=== PATIENT | male | born 1940 | race Caucasian/White ===

== ENCOUNTER 2022-06-10 07:54 | Inpatient (IN) ==
[2022-06-10] MEDS ORDERED: SODIUM CHLORIDE 0.9% 1000ML 1,000 ML IV SCH (08:45)
[2022-06-10 08:49] LABS: Basophils # (auto) 0.06 K/uL (0-0.2); Basophils % (auto) 0.9 %; Eosinophils # (auto) 0.23 K/uL (0-0.50); Eosinophils % (auto) 3.3 %; Hematocrit (blood only) 43.1 % (40.1-51.0); Hemoglobin 15.2 g/dl (14.0-18.0); Immature Granulocytes # (auto) 0.03 K/uL (0.00-0.02); Immature Granulocytes % (auto) 0.4 %; Lymphocytes # (auto) 1.54 K/uL (1.2-3.4); Lymphocytes % (auto) 22.3 %; Mean Corpuscular Hemoglobin 29.2 pg (25.0-34.0); Mean Corpuscular Hgb Conc 35.3 g/dL (32.0-36.0); Mean Corpuscular Volume 82.9 fL (80.0-100.0); Mean Platelet Volume 10.5 fL (9.4-12.4); Neutrophils # (auto) 4.15 K/uL (1.4-6.5); Neutrophils % (auto) 60.1 %; Platelet Count 186 K/uL (130-400); RDW Standard Deviation 41.6 fL (36.4-46.3); White Blood Count 6.91 K/ul (4.8-10.8)
[2022-06-10 09:06] LABS: BUN Creatinine Ratio 19.8 (10-20); Calcium 10.6 mg/dl (8.5-10.1); Creatinine Clr Calc Pharmacy 59.6 ml/min; Est GFR (African American) 84.4 ml/min; Est GFR (Non-African American) 72.8 ml/min; Potassium 4.2 mmol/L (3.5-5.1)
[2022-06-10 09:20] LABS: Albumin Globulin Ratio 1.2 (0.9-2); Albumin Level 3.8 gm/dl (3.4-5.0); Globulin 3.3 gm/dl (2.5-4.0); Total Protein 7.1 gm/dl (6.0-8.3)
[2022-06-10 09:27] LABS: Appearance Urine Clear (Clear); Bacteria Urine Automated 4+ (Negative); Bilirubin Urine Negative (Negative); Blood Urine Negative (Negative); Color Urine Yellow; Epithelial Cell Urine Auto 0-5 /lpf (0-5); Glucose Urine UA Negative (Negative); Ketones Urine Negative (Negative); Leukocyte Esterase Urine 3+ (Negative); Nitrite Urine Positive (Negative); Protein Urine Trace (Negative); RBC Urine Automated 0-4 /hpf (0-4); Specific Gravity Urine 1.019 (1.000-1.030); Urobilinogen Urine Negative (Negative); WBC Urine Automated >30 /hpf (0-5)
[2022-06-10 09:38] LABS: Troponin I High Sensitivity 4.9 pg/ml (0-20)
--- NOTE | 2022-06-10 09:41 | XRay Report ---
XR chest 1V portable HISTORY: weakness COMPARISON: Chest 04/21/2022. FINDINGS: No pneumothorax. No pleural effusions. The cardiac silhouette remains top normal in size. T here is mild diffuse interstitial thickening and a few bibasilar linear densities consistent with sub segmental atelectasis. This is similar to the prior study. There are healing/healed left lower rib fr actures. No new focal lung consolidations to suggest pneumonia. No evidence for pulmonary edema. IMPRESSION: 1. No change in the mild interstitial thickening which is likely chronic. 2. Healing/healed left lower rib fractures. No pneumothorax. ACT 112: Negative or not required by law. Electronically signed by: Prince Amaro M.D. 06/10/2022 9:40 AM
--- NOTE | 2022-06-10 09:58 | Emergency Department Note ---
Impression & Plan Urinary tract infection, Weakness - Urinalysis w/ culture UTI on urinalysis, started Rocephin - CXR - no acute processes - Troponin - negative - EKG - normal - CBC - unremarkable - CMP - unremarkable - COVID - negative ED Provider Note CHIEF COMPLAINT: Weakness/Instability HISTORY OF PRESENT ILLNESS: Camilo is an 81 year old male with hx of irregular heartbeats (on Metoprolol s/p placement of permanent monitor), dementia, arthritis, and recurrent UTIs who presents for evaluation of weakness/instability that has been progressing over the last month. History as per son, Sawyer. Notes increased instability and difficulty with stairs over the last month. Presented today as patient could not sit or stand independently at home. Son notes a pattern of UTIS that present with weakness, instability, and falls (most recent April) Worsening shortness of breath w/ exertion over last month no pleuritic pain, chest pain, or LE edema. Son notes visibly labored open-mouth breathing CXR performed in late April when sx started was negative (unknown if prior Echo, prior EKG wnl) Notes that RLE tends to get stick and catch when he is walking which causes instability. No dietary or medication changes over last two months. No smoking or alcohol use history. 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 Currently eats a broad balanced diet. Low on fluid intake. Associated: No fevers. No nausea or vomiting + Diarrhea started a few days ago. No blood or change in color of stool. No complaints of burning with urination, + significant amounts of urine, no suprapubic pain. No blood or change in urine color. Son notes dark urine. + Chronic intention tremor of R hand No complaints of lightheadedness or dizziness. + Orthostatic changes (instability upon transition from seated to standing) Son requesting emergency placement. Patient and have dementia. Son is POA. REVIEW OF SYSTEMS: A review of systems was performed with positives and pertinent negatives listed in the history of present illness. 10 systems were reviewed and are otherwise negative. ALLERGIES: see below MEDICATIONS: see below PMH: see below SOCIAL HISTORY: see below DDx: Urinary Tract Infection R/o pneumonia, R/o ACS Physical deconditioning, Orthostatic changes PHYSICAL EXAM: Vital signs reviewed. General: Generally well-appearing, in no acute distress, confused. HEENT: No scleral icterus, PERRLA, neck supple. Atraumatic. Cardiovascular: Regular rate and rhythm, no extra sounds. Pulmonary: Clear to auscultation bilaterally, normal work of breathing. Abdomen: Soft, nontender, nondistended, positive bowel sounds. Ismael negative. No suprapubic pain. Musculoskeletal: Atraumatic, no peripheral edema. 4/5 strength symmetric in upper and lower extremities. Sensation intact. 2+ distal pulses. Neurologic: Patient awake alert and oriented x 1, speech is clear Skin: Warm, dry, no rash EMERGENCY DEPARTMENT COURSE/MDM: Patient presented to ER for weakness. Discussed with patient's son Sawyer. Was evaluated at bedside. Ordered urinalysis, CXR, Troponin, EKG< CBC, CMP, and COVID. Patient was found to have UTI and was started on IV Rocephin. Recommending that patient be admitted for management of his UTI and weakness. Will require half-way placement per son. I did explain the findings and plan to the patient and family at the bedside. They expressed an understanding and agreed. Hospitalist was consulted for admission and further management. MONITORING: An order for cardiac monitoring was placed. RADIOLOGY: Chest XR IMPRESSION: 1. No change in the mild interstitial thickening which is likely chronic. 2. Healing/healed left lower rib fractures. No pneumothorax. EKG: Ordered DISPOSITION: Admission Past Med/Surg History Medical History BPH (benign prostatic hyperplasia) Dementia Glaucoma Family History Mother Father Social History Smoking Status: Never smoker Hx Alcohol Use: No Hx Substance Use: No Preferred Language: Vietnamese Communication Ability: Effective Junior Programmer Analyst Required: No Beliefs That Will Affect Care: None Current Living Situation: Family Current Living Situation Comment: pt and his live with their son Feels Safe at Home: Yes Assistive Devices: Walker Allergies Allergies Allergy/AdvReac Type Severity Reaction Status Date / Time No Known Allergies Allergy Unverified 06/10/22 18:50 None Home Meds Home Medications Medication Instructions Recorded Confirmed donepezil 10 mg tablet 10 mg PO DAILY 06/10/22 06/10/22 latanoprost 0.005 % eye drops 1 drp OPB QA 06/10/22 06/10/22 meloxicam 15 mg tablet 15 mg PO DAILY 06/10/22 06/10/22 rivastigmine 9.5 mg/24 hour 1 patch transdermal [facility] 06/10/22 06/10/22 transdermal patch terazosin 1 mg capsule 1 mg PO 06/10/22 06/10/22 timolol maleate 0.5 % eye drops 1 drp OPB 06/10/22 06/10/22 Results & Data (ED) Vital Signs Vital Signs - 24 hr 06/10/22 08:05 06/10/22 08:29 06/10/22 08:43 Temperature 36.9 C Temperature Source Oral Pulse Rate 70 Pulse Rate [Right Finger] Pulse Rhythm [Right Finger] Pulse Strength [Right Finger] Respiratory Rate 16 Respiratory Effort / Characteristics Respiratory Depth Respiratory Pattern Blood Pressure 150/86 H Blood Pressure [Right Arm] Blood Pressure Mean 107 Blood Pressure Mean [Right Arm] Blood Pressure Position [Right Arm] Pulse Oximetry 90 89 L Oxygen Delivery Method Room Air Nasal Cannula Room Air Oxygen Flow Rate 0 Sepsis Recent Fever Within 48 Hours No Sepsis New/Unexplained Change in Mental Status No Sepsis Action Taken by Nursing No Action Required Oxygen Flow Rate - Titration 1 Pulse Oximetry Post Tiitration 96 06/10/22 10:00 Temperature Temperature Source Pulse Rate Pulse Rate [Right Finger] 61 Pulse Rhythm [Right Finger] Regular Pulse Strength [Right Finger] Normal Respiratory Rate 18 Respiratory Effort / Characteristics Non-Labored Respiratory Depth Normal Respiratory Pattern Regular Blood Pressure Blood Pressure [Right Arm] 151/89 H Blood Pressure Mean Blood Pressure Mean [Right Arm] 109 Blood Pressure Position [Right Arm] Lying Pulse Oximetry 96 Oxygen Delivery Method Nasal Cannula Oxygen Flow Rate 1 Sepsis Recent Fever Within 48 Hours Sepsis New/Unexplained Change in Mental Status Sepsis Action Taken by Nursing Oxygen Flow Rate - Titration Pulse Oximetry Post Tiitration Home Medications Current Medication List: was personally reviewed by me Laboratory Data Attestation: I reviewed the patient's lab results. Result diagrams: 06/11/22 06:44 06/11/22 06:44 Lab Results 06/10/22 06/10/22 06/10/22 Range/Units 08:01 08:01 09:05 WBC 6.91 (4.8-10.8) K/ul RBC 5.20 (4.63-6.08) M/uL Hgb 15.2 (14.0-18.0) g/dl Hct 43.1 (40.1-51.0) % MCV 82.9 (80.0-100.0) fL MCH 29.2 (25.0-34.0) pg MCHC 35.3 (32.0-36.0) g/dL RDW Std Deviation 41.6 (36.4-46.3) fL RDW Coeff of Kin 14.0 (11.5-14.5) % Plt Count 186 (130-400) K/uL MPV 10.5 (9.4-12.4) fL Immature Gran % (Auto) 0.4 % Neut % (Auto) 60.1 % Lymph % (Auto) 22.3 % Pinal % (Auto) 13.0 % Eos % (Auto) 3.3 % Baso % (Auto) 0.9 % Neut # (Auto) 4.15 (1.4-6.5) K/uL Lymph # (Auto) 1.54 (1.2-3.4) K/uL Pinal # (Auto) 0.90 H (0.24-0.82) K/uL Eos # (Auto) 0.23 (0-0.50) K/uL Baso # (Auto) 0.06 (0-0.2) K/uL Immature Gran # (Auto) 0.03 H (0.00-0.02) K/uL Sodium 139 (136-145) mmol/L Potassium 4.2 (3.5-5.1) mmol/L Chloride 105 (98-107) mmol/L Carbon Dioxide 29 (21-32) mmol/L Anion Gap 5 (3-11) BUN 19 (6-23) mg/dl Creatinine 0.96 (0.6-1.4) mg/dl Est Cr Clr Drug Dosing 59.6 ml/min Est GFR ( Amer) 84.4 ml/min Est GFR (Non-Af Amer) 72.8 ml/min BUN/Creatinine Ratio 19.8 (10-20) Glucose 108 H (70-99(Fasting)) mg/dl Lactate 0.8 (0.4-2.0) mmol/L Calcium 10.6 H (8.5-10.1) mg/dl Magnesium 2.0 (1.7-2.4) mg/dl Total Bilirubin 1.0 (0.2-1.0) mg/dl AST 12 L (13-39) U/L ALT 11 (7-52) U/L Alkaline Phosphatase 69 (34-104) U/L Troponin I High Sens 4.9 (0-20) pg/ml Total Protein 7.1 (6.0-8.3) gm/dl Albumin 3.8 (3.4-5.0) gm/dl Globulin 3.3 (2.5-4.0) gm/dl Albumin/Globulin Ratio 1.2 (0.9-2) Urine Color Urine Appearance (Clear) Urine pH (4.5-7.5) Ur Specific [place] (1.000-1.030) Urine Protein (Negative) Urine Glucose (UA) (Negative) Urine Ketones (Negative) Urine Blood (Negative) Urine Nitrite (Negative) Urine Bilirubin (Negative) Urine Urobilinogen (Negative) Ur Leukocyte Esterase (Negative) Urine WBC (Auto) (0-5) /hpf Urine RBC (Auto) (0-4) /hpf U Hyaline Cast (Auto) (0-5) /lpf U Epithel Cells (Auto) (0-5) /lpf Urine Bacteria (Auto) (Negative) SARS-CoV-2, RNA, NAAT (NEGATIVE) 06/10/22 06/10/22 Range/Units 09:10 09:10 WBC (4.8-10.8) K/ul RBC (4.63-6.08) M/uL Hgb (14.0-18.0) g/dl Hct (40.1-51.0) % MCV (80.0-100.0) fL MCH (25.0-34.0) pg MCHC (32.0-36.0) g/dL RDW Std Deviation (36.4-46.3) fL RDW Coeff of Kin (11.5-14.5) % Plt Count (130-400) K/uL MPV (9.4-12.4) fL Immature Gran % (Auto) % Neut % (Auto) % Lymph % (Auto) % Pinal % (Auto) % Eos % (Auto) % Baso % (Auto) % Neut # (Auto) (1.4-6.5) K/uL Lymph # (Auto) (1.2-3.4) K/uL Pinal # (Auto) (0.24-0.82) K/uL Eos # (Auto) (0-0.50) K/uL Baso # (Auto) (0-0.2) K/uL Immature Gran # (Auto) (0.00-0.02) K/uL Sodium (136-145) mmol/L Potassium (3.5-5.1) mmol/L Chloride (98-107) mmol/L Carbon Dioxide (21-32) mmol/L Anion Gap (3-11) BUN (6-23) mg/dl Creatinine (0.6-1.4) mg/dl Est Cr Clr Drug Dosing ml/min Est GFR ( Amer) ml/min Est GFR (Non-Af Amer) ml/min BUN/Creatinine Ratio (10-20) Glucose (70-99(Fasting)) mg/dl Lactate (0.4-2.0) mmol/L Calcium (8.5-10.1) mg/dl Magnesium (1.7-2.4) mg/dl Total Bilirubin (0.2-1.0) mg/dl AST (13-39) U/L ALT (7-52) U/L Alkaline Phosphatase (34-104) U/L Troponin I High Sens (0-20) pg/ml Total Protein (6.0-8.3) gm/dl Albumin (3.4-5.0) gm/dl Globulin (2.5-4.0) gm/dl Albumin/Globulin Ratio (0.9-2) Urine Color Yellow Urine Appearance Clear (Clear) Urine pH 5.0 (4.5-7.5) Ur Specific [place] 1.019 (1.000-1.030) Urine Protein Trace H (Negative) Urine Glucose (UA) Negative (Negative) Urine Ketones Negative (Negative) Urine Blood Negative (Negative) Urine Nitrite Positive A (Negative) Urine Bilirubin Negative (Negative) Urine Urobilinogen Negative (Negative) Ur Leukocyte Esterase 3+ H (Negative) Urine WBC (Auto) >30 H (0-5) /hpf Urine RBC (Auto) 0-4 (0-4) /hpf U Hyaline Cast (Auto) 10-30 H (0-5) /lpf U Epithel Cells (Auto) 0-5 (0-5) /lpf Urine Bacteria (Auto) 4+ H (Negative) SARS-CoV-2, RNA, NAAT NEGATIVE (NEGATIVE) Administered Medications Donepezil HCl (Donepezil Hcl 10 Mg Tab) 10 mg PO HS JOHN Stop: 07/11/22 20:59 Last Admin: 06/11/22 20:06 Dose: 10 mg Documented By: YESENIA Ceftriaxone Sodium 1,000 mg/ (Dextrose) 60 mls @ 100 mls/hr IV Q24H JOHN; Protocol Stop: 06/21/22 10:29 Last Infusion: 06/11/22 12:51 Dose: 0 mls/hr Documented By: Admin: 06/11/22 12:05 Dose: 100 mls/hr Documented By: ELENITA Latanoprost (Latanoprost 0.005% Op Soln 2.5 Ml Btl) 1 drops OPR DAILY JOHN Stop: 07/11/22 08:59 Last Admin: 06/12/22 07:36 Dose: 1 drops Documented By: Admin: 06/11/22 07:52 Dose: 1 drops Documented By: ELENITA Terazosin HCl (Terazosin Hcl 1 Mg Cap) 1 mg PO [facility] Stop: 07/10/22 20:59 Last Admin: 06/11/22 20:06 Dose: 1 mg Documented By: Admin: 06/10/22 21:22 Dose: 1 mg Documented By: LINDA Thiamine HCl (Thiamine Hcl 100 Mg Tab) 100 mg PO QAM [facility] Stop: 07/11/22 16:14 Last Admin: 06/12/22 07:35 Dose: 100 mg Documented By: Admin: 06/11/22 17:56 Dose: 100 mg Documented By: ELENITA Timolol Maleate (Timolol Maleate 0.5% Op Soln 5 Ml Btl) 1 drops OPR DAILY JOHN Stop: 07/11/22 08:59 Last Admin: 06/12/22 07:35 Dose: 1 drops Documented By: Admin: 06/11/22 07:54 Dose: 1 drops Documented By: ELENITA Discontinued Medications Gadobutrol (Gadobutrol 65ml Vial) 7 ml IV ONCE ONE Stop: 06/11/22 19:51 Last Admin: 06/11/22 19:50 Dose: 7 ml Documented By: ISRAEL Sodium Chloride (Nss 1000ml) 1,000 mls @ 125 mls/hr IV .Q8H JOHN Stop: 06/10/22 16:44 Last Infusion: 06/10/22 18:56 Dose: 125 mls/hr Documented By: Admin: 06/10/22 09:10 Dose: 125 mls/hr Documented By: AP Ceftriaxone Sodium (Rocephin) 1,000 mg in 50 mls @ 100 mls/hr IV NOW STA Stop: 06/10/22 10:32 Last Infusion: 06/10/22 11:01 Dose: 0 mls/hr Documented By: Admin: 06/10/22 10:27 Dose: 100 mls/hr Documented By: AP Imaging Data Radiologist's Impression: Chest X-Ray 06/10/22 08:43 XR chest 1V portable HISTORY: weakness COMPARISON: Chest 04/21/2022. FINDINGS: No pneumothorax. No pleural effusions. The cardiac silhouette remains top normal in size. There is mild diffuse interstitial thickening and a few bibasilar linear densities consistent with subsegmental atelectasis. This is similar to the prior study. There are healing/healed left lower rib fractures. No new focal lung consolidations to suggest pneumonia. No evidence for pulmonary edema. IMPRESSION: 1. No change in the mild interstitial thickening which is likely chronic. 2. Healing/healed left lower rib fractures. No pneumothorax. ACT 112: Negative or not required by law. Electronically signed by: Prince Amaro M.D. 06/10/2022 9:40 AM Blood Pressure Blood Pressure Findings: Elevated blood pressure Blood Pressure Disposition: further management by hospitalist Discharge Plan Visit Data Chief Complaint: Weakness Stated Complaint: WEAKNESS ED Provider: Nirali Figueroa Discharge Problem: Urinary tract infection, Weakness Patient Disposition: Admitted As Inpatient Discharge Instructions Interventions: ED Discharge Assessment Last Done: 06/10/22 23:12
[2022-06-10] MEDS ORDERED: cefTRIAXone SODIUM 1,000 MG/50 ML BAG IV STA (10:03)
--- NOTE | 2022-06-10 11:48 | History & Physical Report ---
Date of Service June 10, 2022 Assessment & Plan (1) Weakness: Plan: General weakness without any recent acute drop-off; has just been slowly getting weaker. Last fall was ~5 months ago. Some thought that bradycardia was causing his weakness, but son reports his implantable loop recorder has not had any alerts yet. - If any concerns of bradycardia, can interrogate device; do not see need for telemetry at this time. - PT/OT - Placement (2) Hypoxemia: Plan: Has been feeling short of breath with exertion for weeks (likely months per son). 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 CXR on admission showed chronic mild interstitial thickening which may reflect that. No acute process in CXR. No home O2. - Supplemental O2 as needed; presently only requiring 1 L. (3) Asymptomatic bacteriuria: Plan: UA shows nitrates, leuk esterase, WBCs, bacteria; however, patient denies dysuria, polyuria, pelvic pain, fevers, chills, nausea, or any other symptom that I think would be related to a UTI. Asymptomatic bacteruria prevalence is 6- 15%. (PMID: [id number]). No not think his generalized weakness is a symptom of UTI given his gradual decline over months. - No treatment (4) Glaucoma: Plan: - Continue home drops (5) Dementia: Plan: Son reports diagnosis of dementia. Patient is AAOx3 for me (self, hospital ([facility]), year/month/day/date). Knows he is here for weakness. Some vagueness on time frame of events. Appears to be at baseline. - Continue home donepezil - Hold home rivastigmine as its side effects include weight loss (1-25%), abnormal gait (4%), weakness (2-6%). (6) BPH (benign prostatic hyperplasia): Plan: Reports no LUTS at present. - Continue home terazosin - Monitor for symptoms (7) DVT prophylaxis: Plan: SCDs - Low DVT risk per admission calculator DNR/DNI - Per patient with and son present and in agreement. History of Present Illness Primary Care Provider: Uday Turk, DO 81yo M w/ hx of glaucoma, some memory issues who presents with weakness. He is a fairly vague historian and does not give any time frames for anything, but says that he has been feeling weak for "awhile" which son points to at least several months. He was hospitalized at [facility] about a month ago, and he has been living with his son since then. The son reports that he is generally weak with right leg worse than left (though no recent change). He has not fallen, but he son reports that someone in the family has to help him everywhere he walks to prevent him from falling. The son reports that his metoprolol was recently stopped, and he actually had an implantable loop recorder inserted to see if he is becoming bradycardic as a cause of his weakness. Home Medications Medication Instructions Recorded Confirmed Type donepezil 10 mg tablet 10 mg PO DAILY 06/10/22 06/10/22 History latanoprost 0.005 % eye drops 1 drp OPB QA 06/10/22 06/10/22 History meloxicam 15 mg tablet 15 mg PO DAILY 06/10/22 06/10/22 History rivastigmine 9.5 mg/24 hour 1 patch transdermal QA 06/10/22 06/10/22 History transdermal patch terazosin 1 mg capsule 1 mg PO 06/10/22 06/10/22 History timolol maleate 0.5 % eye drops 1 drp OPB 06/10/22 06/10/22 History Past Med/Surg History Medical History BPH (benign prostatic hyperplasia) Dementia Glaucoma Family History Mother Father Social History Smoking Status: Never smoker Preferred Language: Persian Feels Safe at Home: Yes Review of Systems Review of Systems: All systems reviewed & are unremarkable except as noted in HPI & below Physical Exam Constitutional: WD/WN, vitals as above Eyes: EOM intact bilaterally; no conjunctival abnormality ENMT: external ear and nose normal, oropharynx normal Neck: trachea midline, no thyromegaly normal visual inspection Respiratory: normal respiratory effort, lungs clear to auscultation no respiratory distress Cardiovascular: RRR, no murmur, no edema Gastrointestinal (Abdomen): Inspection/Auscultation: abdomen normal to inspection; abdomen not distended Musculoskeletal: no cyanosis or clubbing, extremities motor strength 5/5 Skin: no rashes, warm and dry Neurologic: moves all extremities and awake Motor/Sensory: no sensory deficit Psychiatric: Orientation: alert, oriented to person and cooperative Results & Data Results & Data ([facility]) Vital Signs (Past 12 Hours) Vital Signs Temp Pulse Pulse Resp BP BP Pulse Ox 06/10/22 10:00 61 18 151/89 H 96 06/10/22 08:43 06/10/22 08:29 89 L 06/10/22 08:05 36.9 C 70 16 150/86 H 90 O2 Del Method O2 Flow Rate 06/10/22 10:00 Nasal Cannula 1 06/10/22 08:43 Room Air 06/10/22 08:29 Nasal Cannula 0 06/10/22 08:05 Room Air Code Status & VTE Plan VTE Prophylaxis Plan VTE Prophylaxis will be ordered: Yes PG Care Time/CCT Total # of Minutes Spent Total Time Spent with Patient: Total time spent is greater than 50% in coordination of care (as documented) at patient's floor/unit and/or counseling patient: Coding Level of Care Code 60377 Initial Inpt Care Lvl 3 Diagnoses Weakness R53.1 Hypoxemia R09.02 Asymptomatic bacteriuria R82.71 Glaucoma H40.9 Dementia F03.90 BPH (benign prostatic hyperplasia) N40.0 DVT prophylaxis Z29.9
[2022-06-10] MEDS ORDERED: ONDANSETRON INJ 2 MG/ML 2 ML VIAL IV PRN (14:47)
[2022-06-10] MEDS ORDERED: ACETAMINOPHEN 325 MG TAB PO PRN (14:47)
[2022-06-10] MEDS: TERAZOSIN HCL 1 MG CAP PO SCH (21:22)
[2022-06-11 07:07] LABS: Hematocrit (blood only) 40.6 % (40.1-51.0); Hemoglobin 14.5 g/dl (14.0-18.0); Mean Corpuscular Hemoglobin 29.1 pg (25.0-34.0); Mean Corpuscular Hgb Conc 35.7 g/dL (32.0-36.0); Mean Corpuscular Volume 81.4 fL (80.0-100.0); Platelet Count 175 K/uL (130-400); RDW Coefficient of Variation 13.9 % (11.5-14.5); RDW Standard Deviation 40.5 fL (36.4-46.3); Red Blood Count 4.99 M/uL (4.63-6.08); White Blood Count 6.23 K/ul (4.8-10.8)
[2022-06-11] MEDS: LATANOPROST 0.005% OP SOLN 2.5 ML BTL OPR SCH (07:52)
[2022-06-11] MEDS: TIMOLOL MALEATE 0.5% OP SOLN 5 ML BTL OPR SCH (07:54)
[2022-06-11 07:57] LABS: BUN Creatinine Ratio 16.9 (10-20); Est GFR (African American) 94.3 ml/min; Est GFR (Non-African American) 81.4 ml/min; Magnesium 1.9 mg/dl (1.7-2.4); Phosphorus 2.7 mg/dl (2.5-4.9); Potassium 3.7 mmol/L (3.5-5.1)
[2022-06-11] MEDS ORDERED: METOPROLOL SUCC 25MG EXT REL TAB PO SCH (09:00)
[2022-06-11] MEDS ORDERED: RIVASTIGMINE TD SCH (09:00)
--- NOTE | 2022-06-11 09:57 | Electrocardiogram Report ---
Test Reason : Blood Pressure : / mmHG Vent. Rate : 062 BPM Atrial Rate : 062 BPM P-R Int : 156 ms QRS Dur : 096 ms QT Int : 384 ms P-R-T Axes : 076 -16 033 degrees QTc Int : 389 ms Poor data quality, interpretation may be adversely affected Normal sinus rhythm Normal ECG When compared with ECG of 21-APR-2022 17:20, No significant change was found Confirmed by Tani Vallejo ([id number]) on 06/11/2022 9:57:20 AM Referred By: REFERRED SELF Confirmed By:Tani Vallejo
[2022-06-11] MEDS ORDERED: cefTRIAXone SODIUM 1,000 MG in DEXTROSE 5% 50 ML IV SCH (10:30)
[2022-06-11 12:00] LABS: Ferritin 104.2 ng/ml (8-388)
[2022-06-11 12:10] LABS: Vitamin D, 25 Hydrox 61.5 ng/ml (30-100)
--- NOTE | 2022-06-11 16:01 | Hospitalist Progress Note ---
Date of Service June 11, 2022 Assessment & Plan (1) Weakness: Plan: General weakness without any recent acute drop-off; has just been slowly getting weaker, possibly RLE> LLE. Last fall was ~5 months ago. Some thought that bradycardia was causing his weakness, but son reports his implantable loop recorder has not had any alerts yet. Could be due to neuropathy perhaps? Checked B12 and normal With mildly elevated calcium on admission but normalized with IVFs--> checked iPTH and Vit D levels-both normal although Vit D 60 which is higher than necessary-need to find out if taking vit D supplements Vitals are normal but will check orthostatics CT head negative when seen in our ER in 04/2022 for weakness. If any concerns of bradycardia, can interrogate device; do not see need for telemetry at this time. 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 Difficult to assess due to patient's MCI, but the majority of the time, men do not have asymptomatic bacteriuria and this apparently is how he has presented in the past and then improved with anx therapy Finally, could be medication side effect? He has been on Rivastigmine patch and donepezil for at least a year but holding rivastigmine for now -check brain MRI with contrast - PT/OT evals pending -checked B1 level-pending. Will add on po thiamine -check orthostatics -consider Neuro consult or outpt EMG/NCS if MRI brain neg -treating UTI (2) Urinary tract infection: Plan: as above UA abnormal Ur cx with GNR restart ceftriaxone 1000mg IV daily follow Ur cx (3) Hypoxemia: Plan: Has been feeling short of breath with exertion for weeks (likely months per son). 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 CXR on admission showed chronic mild interstitial thickening which may reflect that. No acute process in CXR. No home O2. - Supplemental O2 as needed; requiring 1 LNC in ER, now on room air monitor (4) Glaucoma: Plan: - Continue home drops (5) Dementia: Plan: Son reports diagnosis of dementia. Patient is AAOx3 for me (self, hospital ([facility]), year/month/day/date). Knows he is here for weakness. Some vagueness on time frame of events. Appears to be at baseline. - Continue home donepezil - Hold home rivastigmine as its side effects include weight loss (1-25%), abnormal gait (4%), weakness (2-6%). (6) BPH (benign prostatic hyperplasia): Plan: Reports no LUTS at present. - Continue home terazosin - Monitor for symptoms (7) DVT prophylaxis: Plan: SCDs Dispo-continued stay, awaiting PT/OT evals Will call son with update DNR/DNI - Per patient with and son present and in agreement. Admission and Anticipated Discharge Date Admission Date: June 10, 2022 Subjective Pt has no complaints. Denies headache, lightheadedness, CP, SOB, nausea, abd pain. Is making urine. Is eating. Is anxious to return home. He is not eager at the prospect of going to rehab. Review of Systems Review of Systems: All systems reviewed & are unremarkable except as noted in HPI & below Physical Exam Constitutional: WD/WN, vitals as above Eyes: + anicteric sclerae Neck: trachea midline, no thyromegaly Respiratory: normal respiratory effort, lungs clear to auscultation Cardiovascular: RRR, no murmur, no edema Chest (Breasts): Chest: normal inspection of chest Gastrointestinal (Abdomen): normal bowel sounds, soft, nontender, no hepatosplenomegaly Musculoskeletal: Extremities: extremities normal to inspection; no cyanosis and no clubbing Skin: + subcutaneous nodules (innumerable on torso,extremities,flesh colored) Neurologic: moves all extremities and awake; no focal motor deficits Psychiatric: Orientation: alert, oriented x 3 and cooperative Lymphatic: no lymphedema Results & Data Results & Data ([facility]) Vital Signs (Past 12 Hours) Vital Signs Temp Pulse Resp BP Pulse Ox O2 Del Method 06/11/22 15:06 36.4 C L 88 20 128/78 91 Room Air 06/11/22 07:13 36.5 C 87 20 167/98 H 92 Room Air Laboratory Results 06/11/22 06/11/22 06/11/22 Range/Units 10:32 10:32 10:32 WBC (4.8-10.8) K/ul RBC (4.63-6.08) M/uL Hgb (14.0-18.0) g/dl Hct (40.1-51.0) % MCV (80.0-100.0) fL MCH (25.0-34.0) pg MCHC (32.0-36.0) g/dL RDW Std Deviation (36.4-46.3) fL RDW Coeff of Kin (11.5-14.5) % Plt Count (130-400) K/uL MPV (9.4-12.4) fL Sodium (136-145) mmol/L Potassium (3.5-5.1) mmol/L Chloride (98-107) mmol/L Carbon Dioxide (21-32) mmol/L Anion Gap (3-11) BUN (6-23) mg/dl Creatinine (0.6-1.4) mg/dl Est Cr Clr Drug Dosing ml/min Est GFR ( Amer) ml/min Est GFR (Non-Af Amer) ml/min BUN/Creatinine Ratio (10-20) Glucose (70-99(Fasting)) mg/dl Calcium (8.5-10.1) mg/dl Phosphorus (2.5-4.9) mg/dl Magnesium (1.7-2.4) mg/dl Iron (35-175) mcg/dl TIBC (250-450) mcg/dl Unsaturated IBC (155-355) mcg/dl Transferrin % Sat (20-50) % Ferritin (8-388) ng/ml Whole Bld Vitamin B1 Pending Vitamin B12 499 (180-914) pg/ml 25-OH Vitamin D Total 61.5 (30-100) ng/ml PTH Intact 60.5 (12.0-88.0) pg/ml 06/11/22 06/11/22 06/11/22 Range/Units 10:32 06:44 06:44 WBC 6.23 (4.8-10.8) K/ul RBC 4.99 (4.63-6.08) M/uL Hgb 14.5 (14.0-18.0) g/dl Hct 40.6 (40.1-51.0) % MCV 81.4 (80.0-100.0) fL MCH 29.1 (25.0-34.0) pg MCHC 35.7 (32.0-36.0) g/dL RDW Std Deviation 40.5 (36.4-46.3) fL RDW Coeff of Kin 13.9 (11.5-14.5) % Plt Count 175 (130-400) K/uL MPV 10.0 (9.4-12.4) fL Sodium 139 (136-145) mmol/L Potassium 3.7 (3.5-5.1) mmol/L Chloride 107 (98-107) mmol/L Carbon Dioxide 25 (21-32) mmol/L Anion Gap 7 (3-11) BUN 14 (6-23) mg/dl Creatinine 0.83 (0.6-1.4) mg/dl Est Cr Clr Drug Dosing 69.0 ml/min Est GFR ( Amer) 94.3 ml/min Est GFR (Non-Af Amer) 81.4 ml/min BUN/Creatinine Ratio 16.9 (10-20) Glucose 107 H (70-99(Fasting)) mg/dl Calcium 10.0 (8.5-10.1) mg/dl Phosphorus 2.7 (2.5-4.9) mg/dl Magnesium 1.9 (1.7-2.4) mg/dl Iron 77 (35-175) mcg/dl TIBC 309 (250-450) mcg/dl Unsaturated IBC 232 (155-355) mcg/dl Transferrin % Sat 25 (20-50) % Ferritin 104.2 (8-388) ng/ml Whole Bld Vitamin B1 Vitamin B12 (180-914) pg/ml 25-OH Vitamin D Total (30-100) ng/ml PTH Intact (12.0-88.0) pg/ml PG Care Time/CCT Total # of Minutes Spent Total Time Spent with Patient: Total time spent is greater than 50% in coordination of care (as documented) at patient's floor/unit and/or counseling patient: Coding Level of Care Code 14992 Subseq Hosp Care Lvl 3 Diagnoses Weakness R53.1 Urinary tract infection N39.0 Hypoxemia R09.02 Glaucoma H40.9 Dementia F03.90 BPH (benign prostatic hyperplasia) N40.0 DVT prophylaxis Z29.9
[2022-06-11] MEDS: THIAMINE HCL 100 MG TAB PO SCH (17:56)
[2022-06-11] MEDS ORDERED: GADOBUTROL 65ML VIAL IV ONE (19:50)
[2022-06-11] MEDS: TERAZOSIN HCL 1 MG CAP PO SCH (20:06)
[2022-06-11] MEDS: DONEPEZIL HCL 10 MG TAB PO SCH (20:06)
--- NOTE | 2022-06-11 21:30 | Magnetic Resonance Report ---
MR brain wo/w con CLINICAL HISTORY: freq falls, 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 Comparison: None available at the time of this dictation. FINDINGS: No abnormal restricted diffusion is identified. Foci of T2 and FLAIR hyperintensity are noted in the paraventricular areas consistent with chronic small vessel ischemic disease. Ex vacuo ventriculomegal y and sulcal enlargement is noted compatible with diffuse encephalomalacia. No mass or abnormal enhan cement is seen. There is no mass effect or midline shift. There is no evidence of acute intraparenchy mal hemorrhage. No extra axial fluid collections are seen. The corpus callosum, pituitary gland, and cerebellar tonsils appear grossly unremarkable. Flow voids of the major intracranial arterial vessels are identified. The imaged portions of the para nasal sinuses, mastoid air cells, and orbits are unremarkable. IMPRESSION: No acute abnormality is seen in particular there is no evidence of intracranial mass. Age-related luz marina nges are seen. ACT 112: Negative or not required by law. Electronically signed by: Quinn Finley M.D. 06/11/2022 9:28 PM
[2022-06-12] MEDS: THIAMINE HCL 100 MG TAB PO SCH (07:35)
[2022-06-12] MEDS: TIMOLOL MALEATE 0.5% OP SOLN 5 ML BTL OPR SCH (07:35)
[2022-06-12] MEDS: LATANOPROST 0.005% OP SOLN 2.5 ML BTL OPR SCH (07:36)
[2022-06-12] MEDS: ERTAPENEM SODIUM 1,000 MG in SYRINGE 0 ML IV SCH (09:43)
--- NOTE | 2022-06-12 17:09 | Hospitalist Progress Note ---
Date of Service June 12, 2022 Assessment & Plan (1) Weakness: Plan: General weakness without any recent acute drop-off; has just been slowly getting weaker, possibly RLE> LLE. Last fall was ~5 months ago. Some thought that bradycardia was causing his weakness, but son reports his implantable loop recorder has not had any alerts yet. Could be due to neuropathy perhaps? Checked B12 and normal With mildly elevated calcium on admission but normalized with IVFs--> checked iPTH and Vit D levels-both normal although Vit D 60 which is higher than necessary-need to find out if taking vit D supplements Vitals are normal but will check orthostatics-pending CT head negative when seen in our ER in 04/2022 for weakness. If any concerns of bradycardia, can interrogate device; do not see need for telemetry at this time. 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 Difficult to assess due to patient's MCI, but apparently is how he has presented in the past and then improved with abx therapy Finally, could be medication side effect? He has been on Rivastigmine patch and donepezil for at least a year but holding rivastigmine for now - PT/OT evals recommend PT/OT -checked B1 level-pending. Added on po thiamine -check orthostatics -consider Neuro consult or outpt EMG/NCS if MRI brain neg -treating UTI (2) Urinary tract infection: Plan: as above UA abnormal Ur cx with ESBL Klebsiella--> change ceftriaxone to Ertapenem and complete 10 day course to cover for prostatitis (3) Hypoxemia: Plan: Has been feeling short of breath with exertion for weeks (likely months per son). 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 CXR on admission showed chronic mild interstitial thickening which may reflect that. No acute process in CXR. No home O2. - Supplemental O2 as needed; requiring 1 LNC in ER, now on room air monitor (4) Glaucoma: Plan: - Continue home drops (5) Dementia: Plan: Son reports diagnosis of dementia. Patient is AAOx3 for me (self, hospital ([facility]), year/month/day/date). Knows he is here for weakness. Some vagueness on time frame of events. Appears to be at baseline. - Continue home donepezil - Hold home rivastigmine as its side effects include weight loss (1-25%), abnormal gait (4%), weakness (2-6%). (6) BPH (benign prostatic hyperplasia): Plan: Reports no LUTS at present. - Continue home terazosin - Monitor for symptoms (7) DVT prophylaxis: Plan: SCDs Dispo-medically stable for discharge on IV abx, awaiting placement at rehab- referrals made by CM Called son with update on 06/11 and will try again this vening DNR/DNI - Per patient with and son present and in agreement. Admission and Anticipated Discharge Date Admission Date: June 10, 2022 Subjective Pt was OOB to chair all morning and afternoon as per RN. He is eating all meals, incontinent to urine and stool, no complaints. When I saw him I woke him from a nap and startled him. He denied any problems. Review of Systems Review of Systems: All systems reviewed & are unremarkable except as noted in HPI & below Physical Exam Constitutional: WD/WN, vitals as above Eyes: + anicteric sclerae Neck: trachea midline, no thyromegaly Respiratory: normal respiratory effort, lungs clear to auscultation Cardiovascular: RRR, no murmur, no edema Chest (Breasts): Chest: normal inspection of chest Gastrointestinal (Abdomen): normal bowel sounds, soft, nontender, no hepatosp lenomegaly Musculoskeletal: Extremities: extremities normal to inspection; no cyanosis and no clubbing Skin: no rashes, warm and dry + subcutaneous nodules (innumerable on torso,extremities,flesh colored) Neurologic: moves all extremities and awake; no focal motor deficits Psychiatric: Orientation: alert and cooperative Lymphatic: no lymphedema Results & Data Results & Data ([facility]) Vital Signs (Past 12 Hours) Vital Signs Temp Pulse Resp BP Pulse Ox O2 Del Method 06/12/22 08:00 Room Air 06/12/22 07:58 36.5 C 90 16 147/84 H 92 Diagnostic Findings Brain MRI 06/11/22 16:26 MR brain wo/w con CLINICAL HISTORY: freq falls, 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 Comparison: None available at the time of this dictation. FINDINGS: No abnormal restricted diffusion is identified. Foci of T2 and FLAIR hyperintensity are noted in the paraventricular areas consistent with chronic small vessel ischemic disease. Ex vacuo ventriculomegaly and sulcal enlargement is noted compatible with diffuse encephalomalacia. No mass or abnormal enhancement is seen. There is no mass effect or midline shift. There is no evidence of acute intraparenchymal hemorrhage. No extra axial fluid collections are seen. The corpus callosum, pituitary gland, and cerebellar tonsils appear grossly unremarkable. Flow voids of the major intracranial arterial vessels are identified. The imaged portions of the paranasal sinuses, mastoid air cells, and orbits are unrem arkable. IMPRESSION: No acute abnormality is seen in particular there is no evidence of intracranial mass. Age-related changes are seen. ACT 112: Negative or not required by law. Electronically signed by: Quinn Finley M.D. 06/11/2022 9:28 PM PG Care Time/CCT Total # of Minutes Spent Total Time Spent with Patient: Total time spent is greater than 50% in coordination of care (as documented) at patient's floor/unit and/or counseling patient: Coding Level of Care Code 00395 Subseq Hosp Care Lvl 2 Diagnoses Weakness R53.1 Urinary tract infection N39.0 Hypoxemia R09.02 Glaucoma H40.9 Dementia F03.90 BPH (benign prostatic hyperplasia) N40.0 DVT prophylaxis Z29.9
[2022-06-12] MEDS: DONEPEZIL HCL 10 MG TAB PO SCH (20:53)
[2022-06-12] MEDS: TERAZOSIN HCL 1 MG CAP PO SCH (20:53)
[2022-06-13] MEDS: LATANOPROST 0.005% OP SOLN 2.5 ML BTL OPR SCH (10:24)
[2022-06-13] MEDS: TIMOLOL MALEATE 0.5% OP SOLN 5 ML BTL OPR SCH (10:25)
[2022-06-13] MEDS: THIAMINE HCL 100 MG TAB PO SCH (10:25)
[2022-06-13] MEDS: ERTAPENEM SODIUM 1,000 MG in SYRINGE 0 ML IV SCH (10:25)
--- NOTE | 2022-06-13 10:45 | XRay Report ---
XR chest 1V portable CLINICAL HISTORY: Hypoxemia, emesis COMPARISON STUDY: Chest radiograph June 10, 2022. FINDINGS: Lung volumes are mildly diminished. This is unchanged. No pneumothorax or pleural effusion is present. Cardiomegaly is unchanged. Interstitial thickening has slightly increased. There is no co nsolidation to suggest pneumonia. IMPRESSION: Interstitial thickening suggestive of mild pulmonary edema. ACT 112: Negative or not required by law. Electronically signed by: Julian Freire M.D. 06/13/2022 10:44 AM
--- NOTE | 2022-06-13 18:06 | Hospitalist Progress Note ---
Date of Service June 13, 2022 Assessment & Plan (1) Weakness: Plan: General weakness without any recent acute drop-off; has just been slowly getting weaker, possibly RLE> LLE. Last fall was ~5 months ago. Some thought that bradycardia was causing his weakness, but son reports his implantable loop recorder has not had any alerts yet. Could be due to neuropathy perhaps? Checked B12 and normal With mildly elevated calcium on admission but normalized with IVFs--> checked iPTH and Vit D levels-both normal although Vit D 60 which is higher than necessary-need to find out if taking vit D supplements Vitals are normal CT head negative when seen in our ER in 04/2022 for weakness. If any concerns of bradycardia, can interrogate device; do not see need for telemetry at this time. 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 Difficult to assess due to patient's MCI, but apparently is how he has presented in the past and then improved with abx therapy Finally, could be medication side effect? He has been on Rivastigmine patch and donepezil for at least a year but holding rivastigmine for now - PT/OT evals recommend PT/OT -checked B1 level-pending. Added on po thiamine -consider Neuro consult or outpt EMG/NCS if MRI brain neg -treating UTI as below (2) Urinary tract infection: Plan: as above UA abnormal Ur cx with ESBL Klebsiella--> continue Ertapenem x 10 day course to cover for prostatitis-end day of tx 06/21/22 Will need US-guided IV prior to discharge to SNF (3) Hypoxemia: Plan: Has been feeling short of breath with exertion for weeks (likely months per son). 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 CXR on admission showed chronic mild interstitial thickening which may reflect that. No acute process in CXR. No home O2. - Supplemental O2 as needed; initially required 1 LNC in ER,then on room air for 2 days Required O2 briefly after a bout of mild aspiration s/p emesis on the AM of 06/13--> then weaned off again monitor (4) Glaucoma: Plan: - Continue home drops (5) Dementia: Plan: Son reports diagnosis of dementia. Patient is AAOx3 for me (self, hospital ([facility]), year/month/day/date). Knows he is here for weakness. Some vagueness on time frame of events. Appears to be at baseline. - Continue home donepezil - Hold home rivastigmine as its side effects include weight loss (1-25%), abnormal gait (4%), weakness (2-6%). (6) BPH (benign prostatic hyperplasia): Plan: Reports no LUTS at present. - Continue home terazosin - Monitor for symptoms (7) DVT prophylaxis: Plan: SCDs Dispo-medically stable for discharge on IV abx, awaiting placement at rehab- referrals made by CM Called son with update on 06/11, 06/12, and then spoke with him at the bedside on 06/13 DNR/DNI - Per patient with and son present and in agreement. Admission and Anticipated Discharge Date Admission Date: June 10, 2022 Subjective Pt had episode of emesis and stool incontinence this AM and had brief mild h ypoxia afterwards. Was weaned off O2. He tells me he remembers it happening but doesn't know why. Shortly afterwards, he was hungry and has been eating all his meals since then. He has no complaints. Review of Systems Review of Systems: All systems reviewed & are unremarkable except as noted in HPI & below Physical Exam Constitutional: WD/WN, vitals as above Eyes: + anicteric sclerae Neck: trachea midline, no thyromegaly Respiratory: normal respiratory effort, lungs clear to auscultation Cardiovascular: RRR, no murmur, no edema Chest (Breasts): Chest: normal inspection of chest Gastrointestinal (Abdomen): normal bowel sounds, soft, nontender, no hepatosplenomegaly Musculoskeletal: Extremities: extremities normal to inspection; no cyanosis and no clubbing Skin: no rashes, warm and dry + subcutaneous nodules (innumerable on torso,extremities,flesh colored) Neurologic: moves all extremities and awake; no focal motor deficits Psychiatric: Orientation: alert, oriented x 3 and cooperative Lymphatic: no lymphedema Results & Data Results & Data ([facility]) Vital Signs (Past 12 Hours) Vital Signs Temp Pulse Resp BP Pulse Ox O2 Del Method 06/13/22 15:06 36.6 C 90 16 120/67 94 Room Air 06/13/22 07:56 92 Room Air 06/13/22 08:00 Room Air 06/13/22 06:31 36.6 C 108 H 22 134/78 89 L Room Air Diagnostic Findings CXR image personally reviewed by me and agree with the following report: Chest X-Ray 06/13/22 07:05 XR chest 1V portable CLINICAL HISTORY: Hypoxemia, emesis COMPARISON STUDY: Chest radiograph June 10, 2022. FINDINGS: Lung volumes are mildly diminished. This is unchanged. No pneumothorax or pleural effusion is present. Cardiomegaly is unchanged. Interstitial thickening has slightly increased. There is no consolidation to suggest pneumonia. IMPRESSION: Interstitial thickening suggestive of mild pulmonary edema. ACT 112: Negative or not required by law. Electronically signed by: Julian Freire M.D. 06/13/2022 10:44 AM PG Care Time/CCT Total # of Minutes Spent Total Time Spent with Patient: Total time spent is greater than 50% in coordination of care (as documented) at patient's floor/unit and/or counseling patient: Coding Level of Care Code 65811 Subseq Hosp Care Lvl 2 Diagnoses Weakness R53.1 Urinary tract infection N39.0 Hypoxemia R09.02 Glaucoma H40.9 Dementia F03.90 BPH (benign prostatic hyperplasia) N40.0 DVT prophylaxis Z29.9
[2022-06-13] MEDS: TERAZOSIN HCL 1 MG CAP PO SCH (20:28)
[2022-06-13] MEDS: DONEPEZIL HCL 10 MG TAB PO SCH (20:28)
[2022-06-14] MEDS: LATANOPROST 0.005% OP SOLN 2.5 ML BTL OPR SCH (08:22)
[2022-06-14] MEDS: THIAMINE HCL 100 MG TAB PO SCH (08:22)
[2022-06-14] MEDS: TIMOLOL MALEATE 0.5% OP SOLN 5 ML BTL OPR SCH (08:22)
[2022-06-14] MEDS: ERTAPENEM SODIUM 1,000 MG in SYRINGE 0 ML IV SCH (08:23)
--- NOTE | 2022-06-14 11:45 | Hospitalist Progress Note ---
Date of Service June 14, 2022 Assessment & Plan (1) Weakness: Plan: General weakness without any recent acute drop-off; has just been slowly getting weaker, possibly RLE> LLE. Last fall was ~5 months ago. Some thought that bradycardia was causing his weakness, but son reports his implantable loop recorder has not had any alerts yet. Could be due to neuropathy perhaps? Checked B12 and normal With mildly elevated calcium on admission but normalized with IVFs--> checked iPTH and Vit D levels-both normal although Vit D 60 which is higher than necessary-need to find out if taking vit D supplements Vitals are normal CT head negative when seen in our ER in 04/2022 for weakness. If any concerns of bradycardia, can interrogate device; do not see need for telemetry at this time. 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 Difficult to assess due to patient's MCI, but apparently is how he has presented in the past and then improved with abx therapy Finally, could be medication side effect? He has been on Rivastigmine patch and donepezil for at least a year-held rivastigmine but will go ahead and restart now - PT/OT evals recommend PT/OT -checked B1 level-pending. Added on po thiamine empirically -consider Neuro referral as outpt for eval and for EMG/NCS to assess for neuropathy contributing to falls/weakness -continue treating UTI as below (2) Urinary tract infection: Plan: as above UA abnormal Ur cx with ESBL Klebsiella--> continue Ertapenem x 10 day course to cover for prostatitis-end day of tx 06/21/22 Will need US-guided IV prior to discharge to SNF if course not complete before then (3) Hypoxemia: Plan: Has been feeling short of breath with exertion for weeks (likely months per son). 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 CXR on admission showed chronic mild interstitial thickening which may reflect that. No acute process in CXR. No home O2. - Supplemental O2 as needed; initially required 1 LNC in ER,then on room air for 2 days Required O2 briefly after a bout of mild aspiration s/p emesis on the AM of 06/13--> then weaned off again monitor (4) Glaucoma: Plan: - Continue home drops (5) Dementia: Plan: Son reports diagnosis of dementia. Patient is AAOx3 for me (self, hospital ([facility]), year/month/day/date). Knows he is here for weakness. Some vagueness on time frame of events. Appears to be at baseline. - Continue home donepezil - Held home rivastigmine as its side effects include weight loss (1-25%), abnormal gait (4%), weakness (2-6%), but I feel it can be restarted now-will have family bring in from home (6) BPH (benign prostatic hyperplasia): Plan: Reports no LUTS at present. Does have chronic urinary incontinent - Continue home terazosin - Monitor for symptoms-will bladder scan (7) DVT prophylaxis: Plan: SCDs Dispo-medically stable for discharge on IV abx, awaiting placement at rehab-r eferrals made by CM Called son with update on 06/11, 06/12, and then spoke with him at the bedside on 06/13 DNR/DNI - Per patient with and son present and in agreement. Admission and Anticipated Discharge Date Admission Date: June 10, 2022 Subjective Pt napping after breakfast when I saw him, wakes up easily. Denies any problems. RN reports he ate breakfast and is doing well, no concerns. Review of Systems Review of Systems: All systems reviewed & are unremarkable except as noted in HPI & below Physical Exam Constitutional: WD/WN, vitals as above Eyes: + anicteric sclerae Neck: trachea midline, no thyromegaly Respiratory: normal respiratory effort, lungs clear to auscultation Cardiovascular: RRR, no murmur, no edema Vessels: radial pulses present Chest (Breasts): Chest: + abnormal inspection of chest (steri strips from loop recorder ceter of chest) Gastrointestinal (Abdomen): normal bowel sounds, soft, nontender, no hepatosplenomegaly Musculoskeletal: Extremities: extremities normal to inspection; no cyanosis and no clubbing Skin: no rashes, warm and dry + subcutaneous nodules (innumerable on torso,extremities,flesh colored) Neurologic: moves all extremities and awake; no focal motor deficits Psychiatric: Orientation: alert, oriented x 3 and cooperative Lymphatic: no lymphedema Results & Data Results & Data ([facility]) Vital Signs (Past 12 Hours) Vital Signs Temp Pulse Resp BP Pulse Ox O2 Del Method 06/14/22 08:34 Room Air 06/14/22 07:51 37.1 C 112 H 16 107/68 91 Room Air PG Care Time/CCT Total # of Minutes Spent Total Time Spent with Patient: Total time spent is greater than 50% in coordination of care (as documented) at patient's floor/unit and/or counseling patient: Coding Level of Care Code 20092 Subseq Hosp Care Lvl 1 Diagnoses Weakness R53.1 Urinary tract infection N39.0 Hypoxemia R09.02 Glaucoma H40.9 Dementia F03.90 BPH (benign prostatic hyperplasia) N40.0 DVT prophylaxis Z29.9
[2022-06-14] MEDS ORDERED: MENTHOL-ZINC OXIDE 360 APPLN/120 GM TUBE EXT PRN (12:00)
[2022-06-14] MEDS: TERAZOSIN HCL 1 MG CAP PO SCH (20:03)
[2022-06-14] MEDS: DONEPEZIL HCL 10 MG TAB PO SCH (20:03)
[2022-06-15] MEDS: REMOVE RIVASTIGMINE PATCH SCH (08:58)
[2022-06-15] MEDS: RIVASTIGMINE PATCH TD SCH (08:58)
[2022-06-15] MEDS: LATANOPROST 0.005% OP SOLN 2.5 ML BTL OPR SCH (09:01)
[2022-06-15] MEDS: TIMOLOL MALEATE 0.5% OP SOLN 5 ML BTL OPR SCH (09:01)
[2022-06-15] MEDS: THIAMINE HCL 100 MG TAB PO SCH (09:02)
[2022-06-15] MEDS: ERTAPENEM SODIUM 1,000 MG in SYRINGE 0 ML IV SCH (09:05)
--- NOTE | 2022-06-15 17:27 | Hospitalist Progress Note ---
Date of Service June 15, 2022 Assessment & Plan (1) Weakness: Plan: General weakness without any recent acute drop-off; has just been slowly getting weaker, possibly RLE> LLE. Last fall was ~5 months ago. Some thought that bradycardia was causing his weakness, but son reports his implantable loop recorder has not had any alerts yet. Could be due to neuropathy perhaps? Checked B12 and normal With mildly elevated calcium on admission but normalized with IVFs--> checked iPTH and Vit D levels-both normal although Vit D 60 which is higher than necessary-would stop any vit D supplements if taking any at home Vitals are normal CT head negative when seen in our ER in 04/2022 for weakness. If any concerns of bradycardia, can interrogate device; do not see need for telemetry at this time. 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 Difficult to assess due to patient's MCI, but apparently is how he has presented in the past and then improved with abx therapy Finally, could be medication side effect? He has been on Rivastigmine patch and donepezil for at least a year-held rivastigmine initially but have since res tarted - PT/OT evals recommend PT/OT -checked B1 level-pending. Added on po thiamine empirically -consider Neuro referral as outpt for eval and for EMG/NCS to assess for neuropathy contributing to falls/weakness -continue treating UTI as below (2) Urinary tract infection: Plan: as above UA abnormal Ur cx with ESBL Klebsiella and Klebsiella (Entero) aerogenes--> continue Ertapenem x 10 day course to cover for prostatitis-end day of tx 06/21/22 Will need US-guided IV prior to discharge to SNF if course not complete before then (3) Hypoxemia: Plan: Has been feeling short of breath with exertion for weeks (likely months per son). 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 CXR on admission showed chronic mild interstitial thickening which may reflect that. No acute process in CXR. No home O2. - Supplemental O2 as needed; initially required 1 LNC in ER,then on room air for 2 days Required O2 briefly after a bout of mild aspiration s/p emesis on the AM of 06/13--> then weaned off again monitor (4) Glaucoma: Plan: - Continue home drops (5) Dementia: Plan: Son reports diagnosis of dementia. Patient is AAOx3 for me (self, hospital ([facility]), year/month/day/date). Knows he is here for weakness. Some vagueness on time frame of events. Appears to be at baseline. - Continue home donepezil - Held home rivastigmine as its side effects include weight loss (1-25%), abnormal gait (4%), weakness (2-6%), but have since restarted as likely not cause of progressive falls (6) BPH (benign prostatic hyperplasia): Plan: Reports no LUTS at present. Does have chronic urinary incontinent - Continue home terazosin - Monitor for symptoms-will bladder scan prn (7) DVT prophylaxis: Plan: SCDs Dispo-medically stable for discharge on IV abx, awaiting placement at rehab- referrals made by CM Called son with update on 06/11, 06/12, and then spoke with him at the bedside on 06/13 DNR/DNI - Per patient with and son present and in agreement. Admission and Anticipated Discharge Date Admission Date: June 10, 2022 Subjective Pt has no complaints. Was napping in the chair when I saw him but woke up easily. Review of Systems Review of Systems: All systems reviewed & are unremarkable except as noted in HPI & below Physical Exam Constitutional: WD/WN, vitals as above Eyes: + anicteric sclerae Neck: trachea midline, no thyromegaly Respiratory: normal respiratory effort, lungs clear to auscultation Cardiovascular: RRR, no murmur, no edema Gastrointestinal (Abdomen): normal bowel sounds, soft, nontender, no hepatosplenomegaly Musculoskeletal: Extremities: extremities normal to inspection; no cyanosis and no clubbing Skin: no rashes, warm and dry + subcutaneous nodules (innumerable on torso,extremities,flesh colored) Neurologic: moves all extremities and awake; no focal motor deficits Psychiatric: Orientation: alert, oriented to person, oriented to place and cooperative Lymphatic: no lymphedema Results & Data Results & Data ([facility]) Vital Signs (Past 12 Hours) Vital Signs Temp Pulse Resp BP BP Pulse Ox O2 Del Method 06/15/22 15:35 36.6 C 87 16 137/83 94 Room Air 06/15/22 07:31 36.3 C L 111 H 18 123/76 92 Room Air PG Care Time/CCT Total # of Minutes Spent Total Time Spent with Patient: Total time spent is greater than 50% in coordination of care (as documented) at patient's floor/unit and/or counseling patient: Coding Level of Care Code 10224 Subseq Hosp Care Lvl 1 Diagnoses Weakness R53.1 Urinary tract infection N39.0 Hypoxemia R09.02 Glaucoma H40.9 Dementia F03.90 BPH (benign prostatic hyperplasia) N40.0 DVT prophylaxis Z29.9
[2022-06-15] MEDS: DONEPEZIL HCL 10 MG TAB PO SCH (20:29)
[2022-06-15] MEDS: TERAZOSIN HCL 1 MG CAP PO SCH (20:29)
[2022-06-16] MEDS: TIMOLOL MALEATE 0.5% OP SOLN 5 ML BTL OPR SCH (08:14)
[2022-06-16] MEDS: THIAMINE HCL 100 MG TAB PO SCH (08:14)
[2022-06-16] MEDS: ERTAPENEM SODIUM 1,000 MG in SYRINGE 0 ML IV SCH (08:15)
[2022-06-16] MEDS: REMOVE RIVASTIGMINE PATCH SCH (08:15)
[2022-06-16] MEDS: LATANOPROST 0.005% OP SOLN 2.5 ML BTL OPR SCH (08:15)
[2022-06-16] MEDS: RIVASTIGMINE PATCH TD SCH (08:16)
[2022-06-16] MEDS: ADVANCED PROBIOTIC 1250 MG CAPSULE PO SCH (12:15)
[2022-06-16] MEDS: HEPARIN SOD 5,000 UNIT/0.5 ML VIAL SQ SCH ×2 (12:15→20:42)
[2022-06-16] MEDS: TERAZOSIN HCL 1 MG CAP PO SCH (20:42)
[2022-06-16] MEDS: DONEPEZIL HCL 10 MG TAB PO SCH (20:42)
--- NOTE | 2022-06-16 20:48 | Hospitalist Progress Note ---
Date of Service June 16, 2022 Assessment & Plan (1) Weakness: Plan: 2nd UTI. Will have his loop recorder interrogated to r/o any dysrhythmia contributing. MRI brain without acute or chronic CVA or mass; does have significant atrophy. CT head without acute pathology. On empiric B1 replacement while awaiting B1 level. Consider Neuro referral as outpt for eval and for EMG/NCS to assess for neuropathy contributing to falls/weakness. Continue PT/OT - will need rehab post-d/c. SW attempting to secure an accepting facility. (2) Urinary tract infection: Plan: 2nd ESBL Klebsiella and Klebsiella (Entero) aerogenes--> continue Ertapenem x 10 day course to cover for prostatitis - end day of tx 06/21/22. Will need US-guided IV prior to discharge to SNF if course not completed before then. (3) Hypoxemia: Plan: Has had intermittent tachycardia and intermittent dyspnea with some transient hypoxia earlier in the visit. Consider CTA chest r/o PE. (4) Glaucoma: Plan: Continue home drops (5) Dementia: Plan: Son reports diagnosis of dementia. Continue home donepezil Cont rivastigmine (6) BPH (benign prostatic hyperplasia): Plan: Cont alpha andreea (7) DVT prophylaxis: Plan: add heparin 5000 TID dispo - SNF Admission and Anticipated Discharge Date Admission Date: June 10, 2022 Subjective patient sleeping soundly when I arrived he awoke easily he denied any complaints he knew where he was and the year nursing flow sheets show 100% meals consumed Review of Systems Review of Systems: gen - good appetite, energy fair cv - no chest pain pulm - no dyspnea GI - no abd pain Physical Exam Physical Exam: gen - NAD, pleasant mouth - MMM neck - no JVD heart - RR, tachy, s1 s2, no murmur lungs - CTA b/l abd - soft, mildly distended, BS+, NT, no HSM ext - no edema, pulses 2+ b/l Results & Data Results & Data ([facility]) Vital Signs (Past 12 Hours) Vital Signs Temp Pulse Resp BP Pulse Ox O2 Del Method 06/16/22 15:57 36.6 C 78 16 137/80 93 Room Air PG Care Time/CCT Total # of Minutes Spent Total Time Spent with Patient: Total time spent is greater than 50% in coordination of care (as documented) at patient's floor/unit and/or counseling patient: Coding Level of Care Code 86616 Subseq Hosp Care Lvl 2 Diagnoses Weakness R53.1 Urinary tract infection N39.0 Hypoxemia R09.02 Glaucoma H40.9 Dementia F03.90 BPH (benign prostatic hyperplasia) N40.0 DVT prophylaxis Z29.9
[2022-06-17] MEDS: ERTAPENEM SODIUM 1,000 MG in SYRINGE 0 ML IV SCH (08:09)
[2022-06-17 08:10] LABS: Hematocrit (blood only) 40.4 % (40.1-51.0); Hemoglobin 14.6 g/dl (14.0-18.0); Mean Corpuscular Hemoglobin 29.4 pg (25.0-34.0); Mean Corpuscular Hgb Conc 36.1 g/dL (32.0-36.0); Mean Corpuscular Volume 81.5 fL (80.0-100.0); Mean Platelet Volume 10.9 fL (9.4-12.4); Platelet Count 196 K/uL (130-400); RDW Standard Deviation 40.8 fL (36.4-46.3); Red Blood Count 4.96 M/uL (4.63-6.08); White Blood Count 6.94 K/ul (4.8-10.8)
[2022-06-17] MEDS: TIMOLOL MALEATE 0.5% OP SOLN 5 ML BTL OPR SCH (08:10)
[2022-06-17] MEDS: LATANOPROST 0.005% OP SOLN 2.5 ML BTL OPR SCH (08:10)
[2022-06-17] MEDS: REMOVE RIVASTIGMINE PATCH SCH (08:11)
[2022-06-17] MEDS: RIVASTIGMINE PATCH TD SCH (08:12)
[2022-06-17] MEDS: HEPARIN SOD 5,000 UNIT/0.5 ML VIAL SQ SCH ×2 (08:22→20:22)
[2022-06-17] MEDS: THIAMINE HCL 100 MG TAB PO SCH (08:22)
[2022-06-17] MEDS: ADVANCED PROBIOTIC 1250 MG CAPSULE PO SCH (08:22)
[2022-06-17 08:43] LABS: BUN Creatinine Ratio 32.6 (10-20); Calcium 10.2 mg/dl (8.5-10.1); Creatinine Clr Calc Pharmacy 66.6 ml/min; Est GFR (African American) 92.9 ml/min; Est GFR (Non-African American) 80.2 ml/min; Potassium 3.5 mmol/L (3.5-5.1)
[2022-06-17] MEDS ORDERED: OPTIRAY 300 500mL IV ONE (18:09)
--- NOTE | 2022-06-17 18:24 | CT Scan Report ---
CT angio chest PE protocol CLINICAL HISTORY: intermittent hypoxia, eval for PE TECHNIQUE: Multidetector row helical CT of the chest was performed with angiographic protocol. Mcallister l and sagittal reformations were obtained. Coronal and sagittal MIPS were obtained from the axial raul a set and were submitted for review. Automated dose lowering techniques and/or adjustment according to patient size were utilized for this exam. CT DOSE: 245.55 mGy.cm Comparison: Comparison is made to chest radiograph 06/13/2022 FINDINGS: Lungs and pleura: Atelectasis is seen in the right lung base. Peripheral interstitial thickening is s een. Heart and pericardium: Heart size is normal. No pericardial effusion. Vessels: No evidence of pulmonary embolism. Mediastinum and dee: Unremarkable. Chest wall and lower neck: Unremarkable. Abdomen: Unremarkable. Bones: Degenerative changes in the thoracic spine. IMPRESSION: 1. No evidence of pulmonary embolism. 2. Right lower lung atelectasis is seen. 3. 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 ACT 112: Negative or not required by law. Electronically signed by: Quinn Finley M.D. 06/17/2022 6:22 PM
--- NOTE | 2022-06-17 19:55 | Hospitalist Progress Note ---
Date of Service June 17, 2022 Assessment & Plan (1) Weakness: Plan: 2nd UTI. Will have his loop recorder interrogated to r/o any dysrhythmia contributing. MRI brain without acute or chronic CVA or mass; does have significant atrophy. CT head without acute pathology. B1 level returned normal. Consider Neuro referral as outpt for eval and for EMG/NCS to assess for neuropathy contributing to falls/weakness. Continue PT/OT - will need rehab post-d/c. SW attempting to secure an accepting facility. (2) Urinary tract infection: Plan: 2nd ESBL Klebsiella and Klebsiella (Entero) aerogenes--> continue Ertapenem x 10 day course to cover for prostatitis - start date was 06/12/22. Today is day #6. Will need US-guided IV prior to discharge to SNF if course not completed before then. (3) Hypoxemia: Plan: Has had intermittent tachycardia and intermittent dyspnea with some transient hypoxia earlier in the visit. CTA chest with NO PE but has mild ILD which likely explains his cxr findings and borderline O2 sats at times. Will classification counselor pt & his family. (4) Glaucoma: Plan: Continue home drops (5) Dementia: Plan: Son reports diagnosis of dementia. Continue home donepezil Cont rivastigmine (6) BPH (benign prostatic hyperplasia): Plan: Cont alpha andreea (7) DVT prophylaxis: Plan: diarrhea - c diff negative add colestipol 1gm x 1 cont lactinex cont heparin 5000 TID dispo - SNF - hopefully Wednesday left message for son on voicemail 06/17 Admission and Anticipated Discharge Date Admission Date: June 10, 2022 Subjective patient with multiple diarrhea bowel movements no abd pain no vomiting eating well offered no new complaints during the visit intermittently having sinus tachycardia has a loop recorder - trying to get it interrogated Review of Systems Review of Systems: gen - feels good cv - no chest pain pulm - denies cough or dyspnea GI - no abd pain or nausea Physical Exam Physical Exam: gen - NAD, pleasant, sitting in chair eating mouth - MMM neck - no JVD heart - RRR, s1 s2, no murmur lungs - CTA b/l abd - soft, mildly distended, BS+, NT, no HSM ext - no edema, pulses 2+ b/l Results & Data Results & Data ([facility]) Vital Signs (Past 12 Hours) Vital Signs Temp Pulse Resp BP Pulse Ox O2 Del Method 06/17/22 15:27 36.6 C 77 16 146/82 H 91 Room Air 06/17/22 09:00 Room Air Laboratory Results Laboratory Results - last 24 hr 06/11/22 06/17/22 06/17/22 10:32 07:15 07:15 WBC 6.94 RBC 4.96 Hgb 14.6 Hct 40.4 MCV 81.5 MCH 29.4 MCHC 36.1 H RDW Std Deviation 40.8 RDW Coeff of Kin 14.0 Plt Count 196 MPV 10.9 Sodium 138 Potassium 3.5 Chloride 105 Carbon Dioxide 25 Anion Gap 8 BUN 28 H Creatinine 0.86 Est Cr Clr Drug Dosing 66.6 Est GFR ( Amer) 92.9 Est GFR (Non-Af Amer) 80.2 BUN/Creatinine Ratio 32.6 H Glucose 107 H Calcium 10.2 H Whole Bld Vitamin B1 154 TSH Stl C. diff Tox B Gene 06/17/22 06/17/22 07:15 17:39 WBC RBC Hgb Hct MCV MCH MCHC RDW Std Deviation RDW Coeff of Kin Plt Count MPV Sodium Potassium Chloride Carbon Dioxide Anion Gap BUN Creatinine Est Cr Clr Drug Dosing Est GFR ( Amer) Est GFR (Non-Af Amer) BUN/Creatinine Ratio Glucose Calcium Whole Bld Vitamin B1 TSH 2.218 Stl C. diff Tox B Gene Negative Cdiff Gene PG Care Time/CCT Total # of Minutes Spent Total Time Spent with Patient: Total time spent is greater than 50% in coordination of care (as documented) at patient's floor/unit and/or counseling patient: Coding Level of Care Code 60010 Subseq Hosp Care Lvl 3 Diagnoses Weakness R53.1 Urinary tract infection N39.0 Hypoxemia R09.02 Glaucoma H40.9 Dementia F03.90 BPH (benign prostatic hyperplasia) N40.0 DVT prophylaxis Z29.9
[2022-06-17] MEDS ORDERED: COLESTIPOL HCL 1 GM TAB PO ONE (20:10)
[2022-06-17] MEDS: DONEPEZIL HCL 10 MG TAB PO SCH (20:22)
[2022-06-17] MEDS: TERAZOSIN HCL 1 MG CAP PO SCH (20:22)
[2022-06-18] MEDS: REMOVE RIVASTIGMINE PATCH SCH (08:14)
[2022-06-18] MEDS: LATANOPROST 0.005% OP SOLN 2.5 ML BTL OPR SCH (08:14)
[2022-06-18] MEDS: HEPARIN SOD 5,000 UNIT/0.5 ML VIAL SQ SCH ×2 (08:14→20:07)
[2022-06-18] MEDS: THIAMINE HCL 100 MG TAB PO SCH (08:14)
[2022-06-18] MEDS: ADVANCED PROBIOTIC 1250 MG CAPSULE PO SCH (08:14)
[2022-06-18] MEDS: TIMOLOL MALEATE 0.5% OP SOLN 5 ML BTL OPR SCH (08:14)
[2022-06-18] MEDS: RIVASTIGMINE PATCH TD SCH (08:15)
[2022-06-18] MEDS: ERTAPENEM SODIUM 1,000 MG in SYRINGE 0 ML IV SCH (08:21)
[2022-06-18 11:22] LABS: BUN Creatinine Ratio 28.8 (10-20); Creatinine Clr Calc Pharmacy 71.5 ml/min; Est GFR (African American) 95.7 ml/min; Est GFR (Non-African American) 82.6 ml/min; Potassium 3.1 mmol/L (3.5-5.1)
[2022-06-18] MEDS: TERAZOSIN HCL 1 MG CAP PO SCH (20:07)
[2022-06-18] MEDS: DONEPEZIL HCL 10 MG TAB PO SCH (20:07)
[2022-06-18] MEDS ORDERED: POTASSIUM CHLORIDE CRTAB 20 MEQ TABCR PO STA (22:30)
--- NOTE | 2022-06-18 22:30 | Hospitalist Progress Note ---
Date of Service June 18, 2022 Assessment & Plan (1) Weakness: Plan: 2nd UTI. loop recorder interrogated this am - will f/u on the report. MRI brain without acute or chronic CVA or mass; does have significant atrophy. CT head without acute pathology. B1 level returned normal. Consider Neuro referral as outpt for eval and for EMG/NCS to assess for neuropathy contributing to falls/weakness. Continue PT/OT - will need rehab post-d/c. Scheduled for probable d/c tomorrow to SNF. (2) Urinary tract infection: Plan: 2nd ESBL Klebsiella and Klebsiella (Entero) aerogenes--> continue Ertapenem x 10 day course to cover for prostatitis - start date was 06/12/22. Today is day #7. (3) Hypoxemia: Plan: Has had intermittent tachycardia and intermittent dyspnea with some transient hypoxia earlier in the visit. CTA chest with NO PE but has mild ILD which likely explains his cxr findings and borderline O2 sats at times. Will veterans rehabilitation counselor pt & his family. (4) Glaucoma: Plan: Continue home drops (5) Dementia: Plan: Son reports diagnosis of dementia. Continue home donepezil Cont rivastigmine (6) BPH (benign prostatic hyperplasia): Plan: Cont alpha andreea (7) DVT prophylaxis: Plan: diarrhea - c diff negative abx-associated cont lactinex hypokalemia -replace, repeat BMP am cont heparin 5000 TID dispo - SNF - hopefully Wednesday left message for son on voicemail 06/17 Admission and Anticipated Discharge Date Admission Date: June 10, 2022 Subjective no issues overnight looks good watching [employer] baseball on TV no new complaints Review of Systems Review of Systems: gen - slept much of the day cv - no cp pulm - no dyspnea or cough GI - no abd pain Physical Exam Physical Exam: gen - NAD, pleasant, laying in bed watching TV mouth - MMM neck - no JVD heart - RRR, s1 s2, no murmur lungs - CTA b/l abd - soft, mildly distended but improved, BS+, NT, no HSM ext - no edema, pulses 2+ b/l Results & Data Results & Data ([facility]) Vital Signs (Past 12 Hours) Vital Signs Temp Pulse Resp BP Pulse Ox O2 Del Method 06/18/22 22:27 36.2 C L 79 16 125/78 93 Room Air 06/18/22 16:01 36.7 C 86 16 135/82 99 Laboratory Results Laboratory Results - last 24 hr 06/18/22 10:02 Sodium 138 Potassium 3.1 L Chloride 104 Carbon Dioxide 25 Anion Gap 9 BUN 23 Creatinine 0.80 Est Cr Clr Drug Dosing 71.5 Est GFR ( Amer) 95.7 Est GFR (Non-Af Amer) 82.6 BUN/Creatinine Ratio 28.8 H Glucose 164 H Calcium 10.0 PG Care Time/CCT Total # of Minutes Spent Total Time Spent with Patient: Total time spent is greater than 50% in coordination of care (as documented) at patient's floor/unit and/or counseling patient: Coding Level of Care Code 32769 Subseq Hosp Care Lvl 2 Diagnoses Weakness R53.1 Urinary tract infection N39.0 Hypoxemia R09.02 Glaucoma H40.9 Dementia F03.90 BPH (benign prostatic hyperplasia) N40.0 DVT prophylaxis Z29.9
[2022-06-19] MEDS: RIVASTIGMINE PATCH TD SCH (08:11)
[2022-06-19] MEDS: LATANOPROST 0.005% OP SOLN 2.5 ML BTL OPR SCH (08:11)
[2022-06-19] MEDS: REMOVE RIVASTIGMINE PATCH SCH (08:11)
[2022-06-19] MEDS: TIMOLOL MALEATE 0.5% OP SOLN 5 ML BTL OPR SCH (08:12)
[2022-06-19] MEDS: THIAMINE HCL 100 MG TAB PO SCH (08:12)
[2022-06-19] MEDS: HEPARIN SOD 5,000 UNIT/0.5 ML VIAL SQ SCH (08:12)
[2022-06-19] MEDS: ADVANCED PROBIOTIC 1250 MG CAPSULE PO SCH (08:12)
[2022-06-19] MEDS: ERTAPENEM SODIUM 1,000 MG in SYRINGE 0 ML IV SCH (08:16)
[2022-06-19] MEDS ORDERED: POTASSIUM CHLORIDE CRTAB 20 MEQ TABCR PO STA (09:13)
[2022-06-19 10:19] LABS: BUN Creatinine Ratio 25.6 (10-20); Calcium 10.1 mg/dl (8.5-10.1); Creatinine Clr Calc Pharmacy 73.4 ml/min; Est GFR (African American) 96.7 ml/min; Est GFR (Non-African American) 83.5 ml/min; Potassium 3.5 mmol/L (3.5-5.1)
--- NOTE | 2022-06-19 11:51 | Discharge Summary ---
Date of Service June 19, 2022 Admission HPI Per Admitting Provider 81yo M w/ hx of glaucoma, some memory issues who presents with weakness. He is a fairly vague historian and does not give any time frames for anything, but says that he has been feeling weak for "awhile" which son points to at least several months. He was hospitalized at [facility] about a month ago, and he has been living with his son since then. The son reports that he is generally weak with right leg worse than left (though no recent change). He has not fallen, but he son reports that someone in the family has to help him everywhere he walks to prevent him from falling. The son reports that his metoprolol was recently stopped, and he actually had an implantable loop recorder inserted to see if he is becoming bradycardic as a cause of his weakness. Discharge Data Allergies Allergy/AdvReac Type Severity Reaction Status Date / Time No Known Allergies Allergy Unverified 06/10/22 18:50 Consultations 06/10/22 11:29 ED Decision to Admit Stat Ordered Studies 06/11/22 16:26 MRI Brain [MR brain wo/w con] Routine 06/17/22 15:58 CT angio chest PE protocol Routine Hospital Course (1) Weakness: 2nd UTI. loop recorder interrogated this am - will f/u on the report. MRI brain without acute or chronic CVA or mass; does have significant atrophy. CT head without acute pathology. B1 level returned normal. Consider Neuro referral as outpt for eval and for EMG/NCS to assess for neuropathy contributing to falls/weakness. Continue PT/OT - will need rehab post-d/c. Scheduled for probable d/c tomorrow to SNF. (2) Urinary tract infection: 2nd ESBL Klebsiella and Klebsiella (Entero) aerogenes--> continue Ertapenem x 10 day course to cover for prostatitis - start date was 06/12/22. Today is day #7. (3) Hypoxemia: Has had intermittent tachycardia and intermittent dyspnea with some transient hypoxia earlier in the visit. CTA chest with NO PE but has mild ILD which likely explains his cxr findings and borderline O2 sats at times. 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 (4) Glaucoma: Continue home drops (5) Dementia: Son reports diagnosis of dementia. Continue home donepezil Cont rivastigmine (6) BPH (benign prostatic hyperplasia): Cont alpha andreea (7) DVT prophylaxis: diarrhea - c diff negative abx-associated cont lactinex hypokalemia -replace, repeat BMP am cont heparin 5000 TID dispo - SNF - hopefully Wednesday left message for son on voicemail 06/17 Discharge Plan Discharge Items Patient Disposition: Transfer [facility] Reason For Visit: Weakness Discharge Diagnosis: 1. ESBL Klebsiella UTI 2. Weakness - likely multifactorial (UTI, generalized deconditioning, etc) 3. Loop recorder device - interrogation of device performed this admission with 1 brief episode (10 sec) of bradycardia to HR of about 40 identified only; no a.fib, no pauses, no AV block seen 4. Dementia 5. Neurofibromatosis 6. Likely interstitial lung disease - mild - based off of CT scan of the chest; no PEs seen 7. BPH Activity: Resume your previous activity Non-emergency contact: Primary Care Provider Call non-emergency contact if: you have any medication questions Follow-up/Referrals: Uday Turk, [Primary Care Provider] - (within [address] [facility] ) Diet: Regular Diet Texture: Easy to Chew Addtl Attending Provider Instructions: Mr Eubanks was hospitalized for weakness. This was acute on chronic, with weakness progressively getting worse over several months. Acute worsening was likely due to klebsiella UTI. Klebsiella was ESBL variety and therefore required IV ertapenem for such. He underwent MRI brain showing atrophy but no old or new stroke. Loop recorder device interrogation showed only 1 episode of sinus bradycardia since May 2022. The episode lasted about 10 seconds and HR was about 40 at lowest. No pauses/a.fib/AV block/other arrhythmia seen. Vitamin B12, TSH, and vitamin B1 levels were all normal. Recommendations - 1. IV ertapenem 1gm daily x 2 days (06/20 and 06/21) then stop. IV can be removed after dose on 06/21. 2. consider referral to [facility] for progressive weakness of legs over several months. 3. consider CBC, BMP in 5 days for stability. Pending Studies at Discharge: No Stand-Alone Forms: My [facility] Doist Skilled Items Patient informed of condition?: Yes DNR: Yes Discharge Level of Care: Skilled Communicable Disease: No Discharge Prognosis: Stable Lines: Peripheral IV Urinary Catheter: No Medications and DC Order Prescriptions: New thiamine HCl (vitamin B1) 100 mg Tablet 100 mg PO QAM 30 Days Qty: 30 0RF Advanced Probiotic 625 mg (10 billion cell) Capsule 2 cap PO DAILY 5 Days Qty: 10 0RF multivitamin with minerals Tablet 1 tab PO DAILY Qty: 90 3RF ertapenem 1 gram recon soln 1 g IV DAILY 2 Days Qty: 2 0RF Rx Instructions: dose on 06/20 and dose on 06/21 then discontinue. potassium chloride 10 mEq capsule, extended release 10 meq PO DAILY 3 Days Qty: 3 0RF acetaminophen [Tylenol] 325 mg capsule 650 mg PO Q6H PRN (Reason: fever or pain) Qty: 30 0RF polyethylene glycol 3350 [Miralax] 17 gram powder in packet 17 g PO DAILY Qty: 30 2RF Continued latanoprost 0.005 % drops 1 drp OPB QAM donepezil 10 mg tablet 10 mg PO DAILY terazosin 1 mg capsule 1 mg PO HS timolol maleate 0.5 % drops 1 drp OPB HS rivastigmine 9.5 mg/24 hour patch 24 hour 1 patch transdermal QAM Discontinued meloxicam 15 mg tablet 15 mg PO DAILY Discharge Orders: Discharge Order (Routine); Ordered 06/19/22 Ordered By: Livan Marquez Admission Data Admit Date/Time: 06/10/22 11:45 Attending Provider: Livan Marquez Admit Provider: Meng Morris Primary Care Provider: Uday Turk Other Providers: Meng Morris ; [place] ; [facility] Coding Diagnoses Weakness R53.1 Urinary tract infection N39.0 Hypoxemia R09.02 Glaucoma H40.9 Dementia F03.90 BPH (benign prostatic hyperplasia) N40.0 DVT prophylaxis Z29.9
== END 2022-06-19 14:03 | DRG 690 ==
LOC: ED 07:54 → EDINP 11:45 → SUATTDRO 11:45 → 3N 23:06